=== PATIENT | female | born 1965 | race Native Hawaiian/Other Pacific Islander ===

== ENCOUNTER 2018-11-19 08:37 | Outpatient (CLI) | payer OTHER | END 2018-11-19 08:38 | disposition home or self-care (01) | LOC: C.LAB 08:37 | DX: E23.1 Drug-induced hypopituitarism (principal); E78.2 Mixed hyperlipidemia; E04.1 Nontoxic single thyroid nodule ==

== ENCOUNTER 2019-02-18 13:19 | Outpatient (CLI) | payer OTHER | END 2019-02-18 13:20 | disposition home or self-care (01) | LOC: C.MAMMO 13:19 | DX: Z12.31 Encounter for screening mammogram for malignant neoplasm of breast (principal) ==

== ENCOUNTER 2019-03-11 13:11 | Emergency (ER) | payer OTHER ==
[2019-03-11 13:11] VITALS: BMI 26.3
[2019-03-11 13:37] VITALS: BP 124/88; PULSE 92; RESP 16; TEMP 98; O2SAT 98
[2019-03-11] MEDS ORDERED: Lidocaine 1% Inj (20ml) INFIL ONE (13:43)
[2019-03-11] MEDS ORDERED: Lidocaine Hydrochloride 5 ML INJ ONE (14:11)
--- NOTE | 2019-03-11 14:59 | C.PDOC ---
History Of Present Illness 53 year old female presents to the emergency department with complaints of a growth on her upper right back for the last 6 months. Patient states that the area has been growing slowly, and has become painful over the last few days. She denies fever. Time Seen by Provider: 03/11/19 13:37 Chief Complaint (Nursing): Abnormal Skin Integrity History Per: Patient History/Exam Limitations: no limitations Onset/Duration Of Symptoms: Worse Since, Other (6 months) Current Symptoms Are (Timing): Worse Location Of Injury: Posterior: Back Quality Of Symptoms: Painful Past Medical History Reviewed: Historical Data, Nursing Documentation, Vital Signs Vital Signs: Last Vital Signs Temp 98 F 03/11/19 13:33 Pulse 92 H 03/11/19 13:33 Resp 16 03/11/19 13:33 BP 124/88 03/11/19 13:33 Pulse Ox 98 03/11/19 13:33 Primary Care Provider: Aubree Frances - Medical History PMH: Migraine Surgical History: No Surg Hx Family History: States: No Known Family Hx - Social History Hx Alcohol Use: Yes Hx Substance Use: No - Immunization History Hx Tetanus Toxoid Vaccination: No Hx Influenza Vaccination: Yes (2014) Hx Pneumococcal Vaccination: No Review Of Systems Constitutional: Negative for: Fever, Chills Cardiovascular: Negative for: Chest Pain Respiratory: Negative for: Cough, Shortness of Breath Gastrointestinal: Negative for: Nausea, Vomiting, Abdominal Pain, Diarrhea Skin: Positive for: Other (growth) Neurological: Negative for: Weakness, Numbness Physical Exam - Physical Exam Appears: Non-toxic, No Acute Distress Skin: Normal Color, Warm, Dry, Other (1cm round and 1.5cm high fluctuant mass, minimal surrounding erythema to right upper back) Head: Atraumatic, Normacephalic Neck: Normal, Supple Chest: Symmetrical, No Tenderness Respiratory: No Decreased Breath Sounds, No Rales, No Rhonchi Neurological/Psych: Oriented x3, Normal Speech, Normal Cognition ED Course And Treatment O2 Sat by Pulse Oximetry: 98 (RA) Pulse Ox Interpretation: Normal - Incision & Drainage Of Abscess Anesthesia: Lidocaine 1% (5ml) Procedure: Drained Pus (initial scant purulent discharge, followed by thick, white clumpy material.) Medical Decision Making Medical Decision Making: Patient's growth is consistent with an infected cyst. Disposition Counseled Patient/Family Regarding: Diagnosis, Need For Followup, Rx Given - Disposition Referrals: Aubree Frances MD [Staff Provider] - [facility] [employer] [facility] [Outside] Disposition: HOME/ ROUTINE Disposition Time: 14:56 Condition: GOOD Additional Instructions: Follow up with your PMD and dermatology. (call customrer service for insurance or concierger service for assistance making this appointment.) The capsule OF THE CYST NEEDS REMOVAL BY ELECTRONICS INSTALLER SO IT DOESN'T RETURN. Tylenol or Motrin for pain. Prescriptions: Cephalexin [cephalexin] 500 mg PO Q6 #20 cap Instructions: Epidermal Cyst (DC) Forms: [facility] [facility] (Kyrgyz), General Discharge Instructions - Clinical Impression Clinical Impression: Infected epidermoid cyst - PA / MEDICAL CLAIMS ANALYST / Resident Statement MD/DO has reviewed & agrees with the documentation as recorded. - Scribe Statement The provider has reviewed the documentation as recorded by the Scribe (Gregor Best) All medical record entries made by the Scribe were at my direction and p ersonally dictated by me. I have reviewed the chart and agree that the record accurately reflects my personal performance of the history, physical exam, medical decision making, and the department course for this patient. I have also personally directed, reviewed, and agree with the discharge instructions and disposition.
== END 2019-03-11 15:07 | disposition home or self-care (01) ==
LOC: C.ER 13:11
DX: L72.0 Epidermal cyst (principal)